=== PATIENT | male | born 1970 | race Hispanic/Latino ===

== ENCOUNTER 2021-07-29 08:40 | Emergency (ER) | payer SELFPAY ==
[~2021-07-29] VITALS: Ht 88.9 cm; Wt 1.4 kg
[2021-07-29] MEDS ORDERED: TETANUS/DIPHTHERIA TOXOID [ADULT] 0.5 ML VIAL IM ONE (10:30)
[2021-07-29 10:51] VITALS: BP 135/85
[2021-07-29] MEDS ORDERED: OCTYL 2-CYANOACRYLATE 1 EACH TP ONE (11:53)
[2021-07-29] MEDS ORDERED: NEOM28.35 TP (11:56)
[2021-07-29] MEDS ORDERED: CEPH250C2 PO (11:56)
== END 2021-07-29 12:17 | disposition home or self-care (01) ==
LOC: EDH 08:40
DX: S61.211A Laceration without foreign body of left index finger without damage to nail, initial encounter (principal); S60.411A Abrasion of left index finger, initial encounter; X58.XXXA Exposure to other specified factors, initial encounter; Y93.89 Activity, other specified; Y92.89 Other specified places as the place of occurrence of the external cause; Y99.8 Other external cause status
CPT/HCPCS: 12001; 73120; 90471; 90714